=== PATIENT | male | born 1980 | race Caucasian/White ===

== ENCOUNTER 2017-03-10 08:40 | Inpatient (IN) | payer BC ==
[~2017-03-10 08:40] MED LIST: Ketamine 500 MG/5 ML MDV IV ONE; Lidocaine 2% 100 MG/5 ML Syringe IVPUSH ONE; Ropivacaine 60 ML, Dexamethasone 8 MG, EPINEPHrine 0.4 MG, Sodium Chloride 0.9% 17.6 ML NERVRT ONE
[2017-03-10] MEDS ORDERED: Acetaminophen 500 MG Tab PO ONE (09:45)
[2017-03-10] MEDS ORDERED: Scopolamine 1.5 MG Transdermal Patch TOP SCH (09:45)
[2017-03-10] MEDS ORDERED: Celecoxib 200 MG Cap PO ONE (09:45)
[2017-03-10] MEDS ORDERED: Gabapentin 300 MG Cap PO ONE (09:45)
[2017-03-10] MEDS ORDERED: cefOXitin 2 GM Vial ONE (10:20)
[2017-03-10] MEDS ORDERED: Dextrose 5%-Lactated Ringers 1,000 ML IV SCH ×2 (10:30→15:45)
[2017-03-10] MEDS ORDERED: Lactated Ringers 1,000 ML ONE (10:50)
[2017-03-10] MEDS ORDERED: Rocuronium 50 MG/5 ML Vial ONE (10:51)
[2017-03-10] MEDS ORDERED: Ondansetron 4 MG/2 ML SDV ONE (10:51)
[2017-03-10] MEDS ORDERED: Neostigmine Methylsulfate 1 MG/ML 5 ML Syringe ONE (10:51)
[2017-03-10] MEDS ORDERED: Glycopyrrolate 0.2 MG/ML 5 ML MDV ONE (10:51)
[2017-03-10] MEDS ORDERED: Dexamethasone 4 MG/ML SDV ONE (10:51)
[2017-03-10] MEDS ORDERED: Succinylcholine 200 MG/10 ML MDV ONE ×2 (10:51→13:46)
[2017-03-10] MEDS ORDERED: Propofol 200 MG/20 ML SDV ONE (10:51)
[2017-03-10] MEDS ORDERED: cefOXitin 2 GM in Premix Bag 1 BAG IV ONE (11:30)
[2017-03-10] MEDS ORDERED: Labetalol 20 MG/4 ML Syringe ONE (13:48)
[2017-03-10] MEDS ORDERED: fentaNYL 100 MCG/2 ML SDV ONE (13:54)
[2017-03-10] MEDS ORDERED: hydrOXYzine HCl 100 MG/2 ML SDV IM ONE (15:00)
[2017-03-10] MEDS ORDERED: Pantoprazole 40 MG Vial IVPUSH SCH (16:00)
[2017-03-10] MEDS ORDERED: diphenhydrAMINE 50 MG/ML SDV IVPUSH PRN (16:00)
[2017-03-10] MEDS ORDERED: MVI, Adult with Vitamin K 10 ML, Thiamine 200 MG, Chromium/Copper/Mang/Selen/Zn 1 ML in... IV SCH ×4 (16:00)
[2017-03-10] MEDS ORDERED: Labetalol 20 MG/4 ML Syringe IVPUSH PRN (16:00)
[2017-03-10] MEDS ORDERED: Ondansetron 4 MG/2 ML SDV IVPUSH PRN (16:00)
[2017-03-10] MEDS ORDERED: Metoclopramide 10 MG/2 ML SDV IVPUSH PRN (16:00)
[2017-03-10] MEDS ORDERED: hydrOXYzine HCl 100 MG/2 ML SDV IM PRN (16:00)
[2017-03-10] MEDS: Lidocaine 0.4%/D5W 2 GM/500 ML BAG IV SCH (17:20)
[2017-03-10] MEDS: Acetaminophen 160 MG Tab,Disintegrating PO SCH ×2 (17:26→21:51)
[2017-03-10] MEDS: Heparin Sodium 5,000 Units/ML Vial SUBCUT SCH (17:27)
[2017-03-10] MEDS: cefOXitin 2 GM in Sodium Chloride 0.9% 50 ML IV SCH (20:17)
[2017-03-10] MEDS: Gabapentin 250 MG/5 ML Solution ML 470 ML Bottle PO SCH (20:18)
[2017-03-11] MEDS ORDERED: Furosemide 20 MG/2 ML VIAL IVPUSH STA (00:02)
[2017-03-11] MEDS: cefOXitin 2 GM in Sodium Chloride 0.9% 50 ML IV SCH ×2 (01:09→08:18)
[2017-03-11] MEDS: Heparin Sodium 5,000 Units/ML Vial SUBCUT SCH ×3 (01:09→19:09)
[2017-03-11] MEDS ORDERED: Iohexol 647 MG/ML 50 ML SDV PO STA (03:02)
[2017-03-11] MEDS: Acetaminophen 160 MG Tab,Disintegrating PO SCH ×4 (04:04→20:59)
[2017-03-11] MEDS: Lidocaine 0.4%/D5W 2 GM/500 ML BAG IV SCH ×2 (05:45→05:46)
[2017-03-11] MEDS ORDERED: Ondansetron 4 MG Tab.DIS PO PRN (08:06)
[2017-03-11] MEDS: Gabapentin 250 MG/5 ML Solution ML 470 ML Bottle PO SCH ×3 (08:16→20:57)
[2017-03-11] MEDS: SCOPOLAMINE PATCH CHECK TOP SCH (08:18)
[2017-03-11] MEDS: Celecoxib 200 MG Cap PO SCH (08:18)
--- NOTE | 2017-03-11 09:05 | CR ---
UGI wo KUB HISTORY: eval R -Y GBP FINDINGS: After administration of oral contrast, upright views were obtained. Post operative changes gastric bypass. Surgical drains in place. No evidence for leak. Contrast passes freely into proximal small bowel loops. IMPRESSION: No evidence for leak or obstruction.
--- NOTE | 2017-03-11 09:24 | PN ---
DATE OF SERVICE: 03/11/2017 SUBJECTIVE: Tuan is postop day #1. His upper GI this morning was normal. Vital signs have been stable. Oral intake on step-1 gastric bypass diet was 330 mL and output was 1300. TALHA drain put out 100 mL of a light pink serosanguineous drainage. He has been up ambulating. Pain is controlled. REVIEW OF SYSTEMS: Remainder of review of systems negative for any pertinent positives and negatives. OBJECTIVE: GENERAL: Tuan Pacheco is a 37-year-old male. He is alert and orientated. VITAL SIGNS: TPR 98.6, 86, 16, and blood pressure 157/53. HEENT: Negative. NECK: Supple. HEART: Regular rate and rhythm. LUNGS: Clear. ABDOMEN: Dressings dry and intact. Abdominal binder is on. TALHA drain as above. EXTREMITIES: Without peripheral edema. ASSESSMENT: Laparoscopic Natali-en-Y gastric bypass surgery, liver biopsy, repair of diaphragmatic hernia for morbid obesity, hepatomegaly, and diaphragmatic hernia. PLAN: 1. IV has been decreased to 80 mL/hour, leave at that rate. 2. May saline lock IV if oral intake adequate. 3. Dressing off, may shower. 4. Step-2 gastric bypass diet without cereal. 5. Good pulmonary toilet. 6. Communication order written to have 3 med cups per hour to assure 1 L of fluid in daily. 7. We will evaluate p.r.n. or in a.m. Mary Walsh PA-C /[id number]
[2017-03-11] MEDS: Pantoprazole 40 MG Delayed-Release Granules 1 Packet PO SCH (15:26)
[2017-03-11] MEDS ORDERED: Benzocaine/Cetylpyridinium/Menthol Lozenge MUCMEM PRN (21:10)
[2017-03-12] MEDS: Heparin Sodium 5,000 Units/ML Vial SUBCUT SCH ×2 (01:00→11:40)
[2017-03-12] MEDS: Acetaminophen 160 MG Tab,Disintegrating PO SCH ×3 (03:47→15:56)
[2017-03-12] MEDS: Gabapentin 250 MG/5 ML Solution ML 470 ML Bottle PO SCH ×2 (08:04→15:05)
[2017-03-12] MEDS: Celecoxib 200 MG Cap PO SCH (08:04)
[2017-03-12] MEDS: SCOPOLAMINE PATCH CHECK TOP SCH (08:04)
[2017-03-12] MEDS ORDERED: Cyanocobalamin (Vitamin B12) 1,000 MCG/ML SDV IM ONE (09:00)
--- NOTE | 2017-03-12 10:45 | DISCH ---
ADMISSION DIAGNOSES: Morbid obesity, BMI is 47.7; history of tobacco use; sleep apnea with use of CPAP; hyperlipidemia; depression; asthma. DISCHARGE DIAGNOSES: Laparoscopic Natali-en-Y gastric bypass surgery, liver biopsy, repair of diaphragmatic hernia for morbid obesity, hepatomegaly, and diaphragmatic hernia. Date of surgery, 03/10/2017. HISTORY: Tuan Pacheco is a 37-year-old male with a longstanding history of morbid obesity and increasing comorbidities. After preoperative evaluation and discussion of possible risks and possible complications, he wished to proceed with surgical procedure. HOSPITAL COURSE: Tuan had a surgery on 03/10/2017. He had no operative complications. On postop day #1, he was started on step-2 gastric bypass diet without cereal after his upper GI was read as normal. On postop day #2, his activity was good, pain was controlled, tolerated a step-2 gastric bypass diet, vital signs stable, and he was able to be discharged to home. PHYSICAL EXAMINATION: GENERAL: Tuan Pacheco is a 37-year-old male. VITAL SIGNS: Height is 5 feet 11 inches. Weight is 342 pounds, BMI 47.7. TPR 98.3, 74, 16. Blood pressure 122/66. HEENT: Negative. NECK: Supple. HEART: Regular rate and rhythm. LUNGS: Clear. ABDOMEN: Sutures intact. TALHA drain site closed. EXTREMITIES: Without peripheral edema. DISPOSITION: Discharged to home. CONDITION: Stable and improving. FOLLOWUP APPOINTMENT: Mary Walsh PA-C, on 03/20/2017 at 10:00 a.m. NEW PRESCRIPTIONS: 1. Tylenol Roberto Meltaways 640 mg q.6 hours for 2 weeks. 2. Celebrex 200 mg p.o. daily. 3. Zofran ODT 4 mg q.4 hours p.r.n. nausea, #30. DISCHARGE DIET: Step-2 gastric bypass diet without cereal. Drink 8 to 10 glasses of water a day. ACTIVITY: No lifting greater than 10 pounds for 2 weeks. Activity, walk at least 6 times daily, distance and time as tolerated. Driving, do not drive for 1 week. Shower/bathing, may shower. Notify provider if fever, nausea, or vomiting. Wound incision care, keep site clean and dry. Wear abdominal binder for 2 weeks and then as tolerated, and use incentive spirometer 10 times every hour while awake.
[2017-03-12 11:56] VITALS: BP 136/98
[2017-03-12] MEDS: Pantoprazole 40 MG Delayed-Release Granules 1 Packet PO SCH (15:57)
--- NOTE | 2017-03-16 15:44 | OR ---
DATE OF PROCEDURE: 03/10/2017 PREOPERATIVE DIAGNOSIS: Morbid obesity. POSTOPERATIVE DIAGNOSES: 1. Morbid obesity. 2. Marked hepatomegaly. 3. Paraesophageal diaphragmatic hernia. OPERATIVE PROCEDURE: 1. Laparoscopic Natali-en-Y gastric bypass with long limb gastrojejunostomy (58532). 2. Garry-Cut needle liver biopsy (23440). 3. Repair of paraesophageal diaphragmatic hernia (43033). ANESTHESIA: General. INDICATIONS FOR PROCEDURE: This is a 37-year-old presenting with longstanding morbid obesity and increasingly significant comorbidities. After preoperative evaluation and discussion, he wished to proceed with a gastric bypass procedure. Potential risks of procedure including bleeding, infection, leaks from various GI tract closures, problems with bowel obstruction over time as well as possibility of cardiopulmonary, septic, or hemorrhagic complications leading to were all discussed, and the patient wishes to proceed. DETAILS OF PROCEDURE: The patient was taken to the operating room and placed in a supine position. After general endotracheal anesthesia was induced, he was converted to a lithotomy position. Gastrointestinal balloon catheter was placed and the abdomen was prepped and draped. At 15 cm inferior and 5 cm left of xiphoid process, a transverse incision was made and the peritoneal cavity entered under direct vision with an Optiview trocar inflated to 15 mmHg pressure with CO2. Laparoscope was reinserted. No underlying trocar insertion site injuries were seen. Following this, the bilateral transversus abdominis plane blocks were placed using the standard solution and with the needle being identified in the correct plane initially from within. Following this, 5 additional trocars were placed across the upper mid abdomen and general exploration was undertaken. The patient was noted to have a marked hepatomegaly with the liver volume being 2-3 times normal and liver grossly fatty infiltrated. Garry-Cut needle biopsies were obtained from the left lobe of the liver. Minimal bleeding from the biopsy sites was controlled with electrocautery. At this point, the omentum was divided in the midline up to the level of the transverse colon. This allowed identification of the small bowel to the ligament of Treitz. The small bowel was then traced out 200 cm distal to that point and divided transversely with a TERA stapler. The small bowel was then traced out additional 150 cm where the [id number] enteroenterostomy was accomplished with internal firing of the Endo-TERA 60 mm stapler. The common opening was then closed transversely with the same stapler and angle was anastomosed. Mesenteric defect approximated with some 0 Ethibond stitch along with fibrin sealant. The divided end of the Natali limb was then from the mesentery for a few centimeters, which allowed an antecolic position of the Natali limb up to the level of the gastroesophageal junction without tension. The liver was then retracted anteriorly. The patient was noted to have a moderate-sized paraesophageal diaphragmatic hernia and prolapse of some perigastric fat and fundus of the stomach in a plane anterior to the course of the esophagus. The latter was reduced and the peritoneum overlying incised and reflected downward. An anterior repair of the diaphragmatic hernia was accomplished with some 0 Ethibond sutures reinforced with PTFE pledgets. The gastrointestinal balloon catheter was then inflated at 15 mL and pulled up snugly against the EG junction. The gastric wall over the apex balloon was then marked with electrocautery, and balloon catheter deflated and pulled up from the esophagus. The lesser omental tissue adjacent to the gastric cardia was then incised allowing dissection behind the stomach at that level. Pouch formation was initiated with a transverse firing of the TERA stapler at the level of the cauterized verito in the gastric cardia. This was completed with some additional firings of TERA danelle up to and through the angle of His. Upon completion of the pouch, both staple lines were noted to be intact. The anvil of a 25 mm EEA stapler was then attached to a [place] sump type tube. The latter was brought down through the mouth and taken out through a small opening in the gastric pouch allowing the anvil likewise to be pulled down to within the gastric pouch. The divided end of the Natali limb was then opened, and the main body of the EEA stapler was passed several centimeters into the lumen of the small bowel, brought up the anvil and united with it, thus creating the gastrojejunostomy. Upon removal of the stapler, double donuts of mucosa were noted within it. The small bowel was closed off with a vascular staple line. The gastrojejunostomy was then reinforced with some 3-0 Vicryl seromuscular stitch along with fibrin sealant. The leak test was accomplished with injection of 120 mL of air in the gastric pouch while submerged with cefoxitin-containing saline solution. A single Jovanni-Coley drain was then placed adjacent to the gastric cardia and taken out through the left subcostal trocar site, and at that point, no further problems noted. Trocars were removed and the peritoneal cavity deflated. The incision was closed with some 4-0 Vicryl skin stitch, which was also used to affix the drain. The patient was taken to the recovery room in satisfactory condition. Davon Romero MD /[id number]
== END 2017-03-12 19:38 | disposition home or self-care (01) | DRG 403 ==
LOC: JP.SDS 08:40 → JP.MS 08:40 → EDSTATUS 09:00 → JP.2SS 14:30
PROVIDERS: ADMIT Surgery; ATTEND Surgery
PROC: 0D164ZA Bypass Stomach to Jejunum, Percutaneous Endoscopic Approach (ICD-10-PCS; principal; 2017-03-10)
PROC: 3E0T3BZ Introduction of Anesthetic Agent into Peripheral Nerves and Plexi, Percutaneous Approach (ICD-10-PCS; 2017-03-10)
PROC: 0FB24ZX Excision of Left Lobe Liver, Percutaneous Endoscopic Approach, Diagnostic (ICD-10-PCS; 2017-03-10)
PROC: 0BQT4ZZ Repair Diaphragm, Percutaneous Endoscopic Approach (ICD-10-PCS; 2017-03-10)
DX: E66.01 Morbid (severe) obesity due to excess calories (principal); G47.30 Sleep apnea, unspecified; Z68.42 Body mass index [BMI] 45.0-49.9, adult; E78.5 Hyperlipidemia, unspecified; F32.9 Major depressive disorder, single episode, unspecified; J45.909 Unspecified asthma, uncomplicated; Z87.891 Personal history of nicotine dependence; Z79.51 Long term (current) use of inhaled steroids; R16.0 Hepatomegaly, not elsewhere classified; K44.9 Diaphragmatic hernia without obstruction or gangrene; K76.0 Fatty (change of) liver, not elsewhere classified
CPT/HCPCS: 36415; 74240; 74240-26; 82962; 86850; 86900; 86901; 88307; 88313; 94762; A9270-GY; C9113; J0171; J0330; J0694; J1100; J1644; J1940; J2001; J2405; J2704; J2710; J2795; J3010; J3410; J3420; J7030; J7042; J7050; J7120; Q9967